=== PATIENT | male | born 1995 | race Caucasian/White ===

== ENCOUNTER 2020-10-28 15:00 | Emergency (ER) | payer BC, OTHER ==
[~2020-10-28] VITALS: Ht 182.9 cm; Wt 88.8 kg
[2020-10-28] MEDS ORDERED: LORazepam 2 MG/ML, 1ML ONE (15:36)
--- NOTE | 2020-10-28 15:39 | NUR ---
TASK RN: THIS IS A 25 YO M W/ C/O FULL BODY TWITCHES WHICH PT BELIEVES TO BE SEIZURE LIKE ACTIVITY. DENIES LOC. PT REPORTS WAS ON KEPPRA A FEW YEARS AGO BUT MD ALVARES D/T DECREASE IN SEIZURE ACTIVITY. ONLY HOME MEDS INCLUDE ZOLOFT AND HYDROXYZINE. TWICHING OF EXTREMITIES AND NECK OBSERVED. SEIZURE PRECAUTIONS IN PLACE. PIV STARTED AND LABS DRAWN. AWAITING ED EVAL. CALL LIGHT IN REACH AND FAMILY AT BEDSIDE.
--- NOTE | 2020-10-28 15:47 | NUR ---
REPORT FROM AQUILINO BAIRES.
[2020-10-28] MEDS ORDERED: SODIUM CHLORIDE 0.9% 1,000ML IVBOLUS ONE (16:00)
[2020-10-28] MEDS ORDERED: SODIUM CHLORIDE FLUSH 10ML SYR IVF ONE (16:00)
[2020-10-28] MEDS ORDERED: LORazepam 2 MG/ML, 1ML IVPush ONE (16:00)
[2020-10-28 16:25] LABS: BASOPHILS % (AUTO) 1 % (0-1); EOSINOPHILS % (AUTO) 2 % (1-7); LYMPHOCYTES % (AUTO) 26 % (22-44); MEAN CORPUSCULAR HEMOGLOBIN 31.5 pg (27.5-34.5); MEAN CORPUSCULAR HGB CONC 34.6 g/dL (33.2-36.2); MEAN PLATELET VOLUME 10.7 fL (7.4-10.4); MONOCYTES % (AUTO) 5 % (2-9); NEUTROPHILS % (AUTO) 67 % (42-75); PLATELET COUNT 187 x10^3/uL (130-400); RED BLOOD COUNT 5.34 x10^6/uL (4.38-5.82); RED CELL DISTRIBUTION WIDTH 12.7 % (9.4-14.8)
[2020-10-28 16:31] LABS: ALBUMIN 4.3 g/dL (3.4-5.0); ANION GAP 6 mmol/L (5-15); CALCIUM 8.9 mg/dL (8.5-10.1); CHLORIDE 108 mmol/L (98-107)
[2020-10-28 16:35] LABS: ALANINE AMINOTRANSFERASE 37 U/L (12-78); ALKALINE PHOSPHATASE 74 U/L (45-117); BILIRUBIN,TOTAL 0.6 mg/dL (0.2-1.0); CREATININE 1.31 mg/dL (0.7-1.3); TOTAL PROTEIN 7.5 g/dL (6.4-8.2)
--- NOTE | 2020-10-28 16:57 | NUR ---
PT REPORTS FEELING BETTER AFTER ATIVAN. PT RESTING COMFORTABLY NO TREMORS NOTED AT THIS TIME.
[2020-10-28 17:38] VITALS: BP 128/83
== END 2020-10-28 17:40 | disposition home or self-care (01) ==
LOC: ED 17:30
DX: M62.831 Muscle spasm of calf (principal); F17.200 Nicotine dependence, unspecified, uncomplicated
CPT/HCPCS: 36415; 80053; 85025; 96361; 96374; 99285; J2060; J7030